=== PATIENT | female | born 1995 | race Caucasian/White ===

== ENCOUNTER 2017-06-24 03:39 | Emergency (ER) | payer OTHER ==
--- NOTE | 2017-06-24 03:43 | EDPHY ---
H & P HPI/ROS: HPI CHIEF COMPLAINT: Dysuria, urinary frequency, back pain HISTORY OF PRESENT ILLNESS: This patient is a 22-year-old female otherwise healthy no significant medical history does not take any daily medications she presents emergency room with 24 hours of dysuria and urinary frequency. She is concerned she may have a urinary tract infection. States he feels very similar to previous UTIs. She does complain of some lower back pain. She has not had any fever. She has not had vomiting. Denies any significant abdominal pain. Past Medical History: Denies medical history except for remote history UTI. Past Surgical History: Denies any significant surgical history Social History: Denies daily use drugs alcohol tobacco products. Family History: Noncontributory ROS REVIEW OF SYSTEMS: A comprehensive 10 point review of systems is otherwise negative aside from elements mentioned in the history of present illness. Exam Constitutional appears well nontoxic, triage nursing summary reviewed, vital signs reviewed, awake/alert. Eyes normal conjunctivae and sclera, EOMI, PERRLA. HENT normal inspection, atraumatic, moist mucus membranes, no epistaxis, neck supple/ no meningismus, no raccoon eyes. Respiratory clear to auscultation bilaterally, normal breath sounds, no respiratory distress, no wheezing. Cardiovascular rate normal, regular rhythm, no murmur, no edema, distal pulses normal. Gastrointestinal soft, non-tender, no rebound, no guarding, normal bowel sounds, no distension, no pulsatile mass. Genitourinary no significant CVA tenderness on exam. Musculoskeletal no midline vertebral tenderness, full range of motion, no calf swelling, no tenderness of extremities, no meningismus, good pulses, neurovascularly intact. Skin pink, warm, & dry, no rash, skin atraumatic. Neurologic awake, alert and oriented x 3, AAOx3, moves all 4 extremities equally, motor intact, sensory intact, CN II-XII intact, normal cerebellar, normal vision, normal speech. Psychiatric normal mood/affect. Heme/Lymph/Immune no lymphadenopathy. Differential Diagnosis: Includes but is not limited to in a particular order, UTI, pyelonephritis, cystitis Medical Decision Making: Plan for this patient check UA. Re-evaluation: Urinalysis reviewed shows UTI. Will start on Keflex and Pyridium here in emergency room. Prescription for next doses. Understands return emergency room if there is worsening symptoms includes worsening back pain, fever, vomiting or urinary symptoms. Source: Patient Constitutional: Initial Vital Signs Temperature (C) 36.9 C 06/24/17 03:45 Heart Rate 78 06/24/17 03:45 Respiratory Rate 16 06/24/17 03:45 Blood Pressure 133/87 H 06/24/17 03:45 O2 Sat (%) 96 06/24/17 03:45 O2 Delivery Mode Room Air Allergies/Adverse Reactions: Penicillins Allergy (Verified 06/24/17 03:45) Home Medications: Medication Instructions Recorded Cephalexin [Keflex] 500 mg PO Q6H #28 cap 06/24/17 Phenazopyridine HCl [Pyridium] 200 mg PO TID #15 tab 06/24/17 Medical Decision Making - Data Points Laboratory Results: 06/24/17 03:45 Urine Color YELLOW Urine Appearance MODERATELY TURBID Urine pH 5.0 (5.0-7.5) Ur Specific [place] 1.018 (1.002-1.030) Urine Protein 2+ H (NEGATIVE) Urine Ketones TRACE H (NEGATIVE) Urine Blood NEGATIVE (NEGATIVE) Urine Nitrate NEGATIVE (NEGATIVE) Urine Bilirubin NEGATIVE (NEGATIVE) Urine Urobilinogen NEGATIVE EU EU (0.2-1.0) Ur Leukocyte Esterase 3+ H (NEGATIVE) Urine RBC 50-182 /hpf H /hpf (0-3) Urine WBC 50-182 /hpf H /hpf (0-3) Ur Epithelial Cells TRACE /lpf /lpf (NONE-1+) Urine Bacteria 4+ /hpf H /hpf (NONE SEEN) Urine Mucus 2+ /lpf H /lpf (NONE-1+) Urine Glucose NEGATIVE (NEGATIVE) Departure - Departure Disposition: Home, Routine, Self-Care Clinical Impression: Urinary tract infection Qualifiers: Urinary tract infection type: acute cystitis Hematuria presence: with hematuria Qualified Code(s): N30.01 - Acute cystitis with hematuria Condition: Good Instructions: Urinary Tract Infection in Women (ED) Additional Instructions: 1. Drink lots of fluids. 2. Take antibiotics as prescribed. 3. Return emergency room if he develops worsening abdominal pain back pain fever or vomiting. Referrals: NONE *PRIMARY CARE P,. [Primary Care Provider] - As per Instructions Prescriptions: Cephalexin [Keflex] 500 mg PO Q6H #28 cap Phenazopyridine HCl [Pyridium] 200 mg PO TID #15 tab
[2017-06-24 03:49] VITALS: TEMP 98.4; O2SAT 96
[2017-06-24 04:14] LABS: COLOR YELLOW; LEUKOCYTE ESTERASE,URINE 3+ (NEGATIVE); NITRITE,URINE NEGATIVE (NEGATIVE)
[2017-06-24 04:18] LABS: BACTERIA 4+ /hpf (NONE SEEN); MUCUS 2+ /lpf (NONE-1+); RBC,URINE 50-182 /hpf (0-3); WBC,URINE 50-182 /hpf (0-3)
[2017-06-24] MEDS ORDERED: CEPHALEXIN 500MG PREPACK#4 BTL TAKEHOME ONE (05:01)
[2017-06-24] MEDS ORDERED: PHENAZOPYRIDINE HCL 200 MG TAB PO ONE (05:01)
[2017-06-24] MEDS ORDERED: CEPHALEXIN 500 MG CAP PO ONE (05:01)
[2017-06-24 05:08] VITALS: BP 116/68; PULSE 70; RESP 14
== END 2017-06-24 05:07 | disposition home or self-care (01) ==
DX: N30.01 Acute cystitis with hematuria (principal); B96.89 Other specified bacterial agents as the cause of diseases classified elsewhere